=== PATIENT | male | born 1975 | race Two or more races ===

== ENCOUNTER 2020-10-14 16:39 | Emergency (ER) | payer SELFPAY ==
[~2020-10-14] VITALS: Ht 167.6 cm; Wt 73.0 kg
[2020-10-14] MEDS ORDERED: KETOROLAC 60MG/2ML VIAL IM ONE (20:15)
[2020-10-14] MEDS ORDERED: IBUP-2029 MT (20:21)
[2020-10-14 21:18] VITALS: BP 125/88
== END 2020-10-14 21:19 | disposition home or self-care (01) ==
LOC: ER 16:39
DX: S20.211A Contusion of right front wall of thorax, initial encounter (principal); S40.011A Contusion of right shoulder, initial encounter; S50.01XA Contusion of right elbow, initial encounter; I10 Essential (primary) hypertension; Y08.89XA Assault by other specified means, initial encounter; Y93.89 Activity, other specified; Y92.810 Car as the place of occurrence of the external cause; Y99.8 Other external cause status
CPT/HCPCS: 71045; 73030; 73080; 73110; 96372; 99284; J1885

== ENCOUNTER 2020-11-13 23:48 | Emergency (ER) | payer SELFPAY ==
[~2020-11-13] VITALS: Ht 172.7 cm; Wt 70.0 kg
[~2020-11-13 23:48] MED LIST: IBUP-2029 MT
[2020-11-14 01:31] LABS: BASOPHILS % 0.9 % (0.0-2.0); HEMATOCRIT. 47.4 % (42.0-52.0); HEMOGLOBIN. 16.2 g/dL (14.0-18.0); LYMPHOCYTES % 24.5 % (20.0-50.0); MEAN CORPUSCULAR HEMOGLOBIN 31.3 pg (28.0-32.0); MEAN CORPUSCULAR VOLUME 91.3 fL (80.0-94.0); MEAN PLATELET VOLUME 7.9 fl (7.4-10.4); MONOCYTES % 6.6 % (2.0-8.0); PLATELET 308 x1000/uL (130-400); RED BLOOD CELL COUNT 5.19 mill/uL (4.7-6.1)
[2020-11-14 01:38] LABS: CHLORIDE 112 mEq/L (98-107)
[2020-11-14] MEDS ORDERED: ONDANSETRON HCL 4MG/2ML INJ IV STA (01:47)
[2020-11-14] MEDS ORDERED: MORPHINE SULFATE 4 MG/ML CPJ (NOT FOR IM USE) IV STA (01:47)
[2020-11-14] MEDS ORDERED: DEXT 5%/0.9% NACL 500 ML IV ONE (02:00)
[2020-11-14 03:42] LABS: *AMPHETAMINES SCREEN URINE NEGATIVE (NEGATIVE); *BARBITURATES SCREEN URINE NEGATIVE (NEGATIVE); *BENZODIAZEPINES SCREEN URINE PRESUMTIVE POSITIVE (NEGATIVE); *COCAINE SCREEN URINE NEGATIVE (NEGATIVE)
[2020-11-14 03:43] LABS: CANNABINOID URINE SCREEN NEGATIVE (NEGATIVE); METHADONE URINE SCREEN NEGATIVE (NEGATIVE); OPIATES URINE SCREEN PRESUMTIVE POSITIVE (NEGATIVE); PHENCYCLIDINE URINE SCREEN NEGATIVE (NEGATIVE)
[2020-11-14] MEDS ORDERED: MORPHINE SULFATE 4 MG/ML CPJ (NOT FOR IM USE) IV ONE (04:45)
[2020-11-14] MEDS ORDERED: IOHEXOL-350 100 ML BOTTLE ONE (04:57)
[2020-11-14 05:51] VITALS: BP 140/98
== END 2020-11-14 07:00 | disposition home or self-care (01) ==
LOC: ER 23:48
DX: S16.1XXA Strain of muscle, fascia and tendon at neck level, initial encounter (principal); I67.1 Cerebral aneurysm, nonruptured; I10 Essential (primary) hypertension; F17.210 Nicotine dependence, cigarettes, uncomplicated; V43.52XA Car driver injured in collision with other type car in traffic accident, initial encounter; Y93.89 Activity, other specified; Y92.488 Other paved roadways as the place of occurrence of the external cause
CPT/HCPCS: 36415; 70450; 70496; 70498; 71045; 72125; 72170; 73060; 73552; 80053; 80305; 80320; 83880; 84484; 85025; 86850; 86900; 86901; 93005; 96361; 96374; 96375; 96376; 99285; J2270; J2405; J7042; Q9967; G0480

== ENCOUNTER 2022-03-27 12:45 | Emergency (ER) | payer SELFPAY ==
[~2022-03-27] VITALS: Ht 167.6 cm; Wt 75.0 kg
[2022-03-27 13:15] VITALS: BP 112/84
== END 2022-03-28 00:01 | disposition left against medical advice (07) ==
LOC: ER 13:22
DX: Z53.21 Procedure and treatment not carried out due to patient leaving prior to being seen by health care provider (principal)